=== PATIENT | female | born 1995 | race Native Hawaiian/Other Pacific Islander ===

== ENCOUNTER 2016-07-07 20:20 | Emergency (ER) | payer OTHER ==
[~2016-07-07] VITALS: Ht 177.8 cm; Wt 59.0 kg
[2016-07-07 23:03] LABS: PLATELET COUNT 257 K/uL (152-353)
[2016-07-07 23:15] LABS: POTASSIUM 3.6 mmol/L (3.6-5.2); SODIUM 137 mmol/L (136-145)
[2016-07-08 00:21] VITALS: BP 122/64; TEMP 98.2
== END 2016-07-08 00:20 | disposition home or self-care (01) ==
LOC: ED 20:20
PROVIDERS: Emergency Medicine
DX: R51 Headache (principal)
CPT/HCPCS: 80053; 80307; 81000; 81025; 85027; 99283; G0479

== ENCOUNTER 2018-10-27 14:00 | Outpatient (CLI) | payer OTHER | END 2018-10-27 14:28 | disposition short-term general hospital (02) | LOC: AMB 14:00 | DX: I49.8 Other specified cardiac arrhythmias (principal); Z33.1 Pregnant state, incidental | CPT/HCPCS: A0425; A0427 ==

== ENCOUNTER 2021-08-10 08:57 | Outpatient (CLI) | payer OTHER | END 2021-08-10 18:55 | disposition home or self-care (01) | LOC: RAD 08:57 | PROVIDERS: ATTEND Nurse Practitioner | DX: M53.3 Sacrococcygeal disorders, not elsewhere classified (principal) ==